=== PATIENT | female | born 1970 | race Hispanic/Latino ===

== ENCOUNTER 2021-05-02 05:51 | Emergency (ER) | payer BC ==
[2021-05-02] MEDS ORDERED: MORPHINE 4 MG/1 ML INJ IV ONE (06:26)
[2021-05-02] MEDS ORDERED: ONDANSETRON 4 MG/2 ML INJ IV ONE ×2 (06:26→06:58)
--- NOTE | 2021-05-02 06:30 | Emergency Department Report ---
ED General Adult HPI - General Chief complaint: Extremity Injury, Upper Stated complaint: SHOULDER OUT OF SOCKET Time Seen by Provider: 05/02/21 06:23 Source: patient, EMS Mode of arrival: Wheelchair Limitations: No Limitations - History of Present Illness Initial comments: The patient presents to the emergency department the chief complaint of right sh oulder pain that started this morning. Patient states she rolled over in her bed began to have excruciating pain of the right shoulder. Patient states she dislocated that shoulder on the 27 April and has dislocated the shoulder total of 4 times. Patient denies any chest pain, shortness breath, or headache. Patient also denies abdominal pain. Patient denies any recent injury -: Sudden Location: upper extremity Radiation: non-radiation Severity scale (0 -10): 9 Quality: sharp Consistency: constant Improves with: rest Worsens with: movement Associated Symptoms: denies other symptoms Treatments Prior to Arrival: none - Related Data Previous Rx's Medication Instructions Recorded Last Taken Type HYDROcodone/APAP 5-325 [Jeffers 1 each PO Q6HR PRN #12 tablet 05/02/21 Unknown Rx 5/325] Ondansetron [Zofran Odt] 4 mg PO Q4HR PRN #20 tab.rapdis 05/02/21 Unknown Rx Allergies Allergy/AdvReac Type Severity Reaction Status Date / Time acetaminophen [From Vicodin] Allergy Itching Verified 05/02/21 06:27 hydrocodone [From Vicodin] Allergy Itching Verified 05/02/21 06:27 ED Review of Systems ROS: Stated complaint: SHOULDER OUT OF SOCKET Other details as noted in HPI Comment: All other systems reviewed and negative Constitutional: denies: chills, fever Eyes: denies: eye pain, eye discharge, vision change ENT: denies: ear pain, throat pain Respiratory: denies: cough, shortness of breath, wheezing Cardiovascular: denies: chest pain, palpitations Endocrine: no symptoms reported Gastrointestinal: denies: abdominal pain, nausea, diarrhea Genitourinary: denies: urgency, dysuria, discharge Musculoskeletal: denies: back pain, joint swelling, arthralgia Skin: denies: rash, lesions Neurological: denies: headache, weakness, paresthesias Psychiatric: denies: anxiety, depression Hematological/Lymphatic: denies: easy bleeding, easy bruising ED Past Medical Hx - Past Medical History Previous Medical History?: No - Surgical History Past Surgical History?: Yes Additional Surgical History: Hip replacement left, 3 pins in right hip, thyroidectomy left - Social History Smoking Status: Never Smoker Substance Use Type: None - Medications Home Medications: Home Medications Medication Instructions Recorded Confirmed Last Taken Type HYDROcodone/APAP 5-325 [Jeffers 1 each PO Q6HR PRN #12 tablet 05/02/21 Unknown Rx 5/325] Ondansetron [Zofran Odt] 4 mg PO Q4HR PRN #20 tab.rapdis 05/02/21 Unknown Rx ED Physical Exam - General Limitations: No Limitations General appearance: alert, in no apparent distress - Head Head exam: Present: atraumatic, normocephalic - Eye Eye exam: Present: normal appearance - ENT ENT exam: Present: mucous membranes moist - Neck Neck exam: Present: normal inspection - Respiratory Respiratory exam: Present: normal lung sounds bilaterally. Absent: respiratory distress - Cardiovascular Cardiovascular Exam: Present: regular rate, normal rhythm. Absent: systolic murmur, diastolic murmur, rubs, gallop - GI/Abdominal GI/Abdominal exam: Present: soft, normal bowel sounds - Extremities Exam Extremities exam: Present: other (Patient has tenderness to palpation over the acromioclavicular landmarks. Mild deformity in the anterior aspect of the right shoulder) - Back Exam Back exam: Present: normal inspection - Neurological Exam Neurological exam: Present: alert, oriented X3 - Psychiatric Psychiatric exam: Present: normal affect, normal mood - Skin Skin exam: Present: warm, dry, intact, normal color. Absent: rash ED Course Vital Signs 05/02/21 05/02/21 05/02/21 06:05 06:31 06:36 Temperature 98.2 F Temperature [ Pre-Procedure] Pulse Rate 61 Pulse Rate [ Intra-Procedure ] Pulse Rate [ Post-Procedure] Pulse Rate [Pre -Procedure] Respiratory 18 18 Rate Respiratory Rate [Intra- Procedure] Respiratory Rate [Post- Procedure] Respiratory Rate [Pre- Procedure] Blood Pressure 140/84 Blood Pressure [Intra- Procedure] Blood Pressure 142/90 [Left] Blood Pressure [Post-Procedure ] Blood Pressure [Pre-Procedure] O2 Sat by Pulse 99 98 Oximetry O2 Sat by Pulse Oximetry [ Intra-Procedure ] O2 Sat by Pulse Oximetry [Post -Procedure] O2 Sat by Pulse Oximetry [Pre- Procedure] 05/02/21 05/02/21 05/02/21 06:45 07:15 07:45 Temperature Temperature [ Pre-Procedure] Pulse Rate 70 Pulse Rate [ Intra-Procedure ] Pulse Rate [ Post-Procedure] Pulse Rate [Pre -Procedure] Respiratory 14 Rate Respiratory Rate [Intra- Procedure] Respiratory Rate [Post- Procedure] Respiratory Rate [Pre- Procedure] Blood Pressure 140/84 140/84 131/72 Blood Pressure [Intra- Procedure] Blood Pressure [Left] Blood Pressure [Post-Procedure ] Blood Pressure [Pre-Procedure] O2 Sat by Pulse 98 97 99 Oximetry O2 Sat by Pulse Oximetry [ Intra-Procedure ] O2 Sat by Pulse Oximetry [Post -Procedure] O2 Sat by Pulse Oximetry [Pre- Procedure] 05/02/21 05/02/21 05/02/21 08:12 08:15 08:18 Temperature Temperature [ 97.9 F Pre-Procedure] Pulse Rate 68 Pulse Rate [ 68 Intra-Procedure ] Pulse Rate [ Post-Procedure] Pulse Rate [Pre 65 -Procedure] Respiratory 10 L Rate Respiratory 16 Rate [Intra- Procedure] Respiratory Rate [Post- Procedure] Respiratory 15 Rate [Pre- Procedure] Blood Pressure 154/76 Blood Pressure 134/88 [Intra- Procedure] Blood Pressure [Left] Blood Pressure [Post-Procedure ] Blood Pressure 162/75 [Pre-Procedure] O2 Sat by Pulse 99 Oximetry O2 Sat by Pulse 97 Oximetry [ Intra-Procedure ] O2 Sat by Pulse Oximetry [Post -Procedure] O2 Sat by Pulse 96 Oximetry [Pre- Procedure] 05/02/21 05/02/21 05/02/21 08:25 08:30 08:45 Temperature Temperature [ Pre-Procedure] Pulse Rate 69 70 Pulse Rate [ Intra-Procedure ] Pulse Rate [ 72 Post-Procedure] Pulse Rate [Pre -Procedure] Respiratory 15 16 Rate Respiratory Rate [Intra- Procedure] Respiratory 13 Rate [Post- Procedure] Respiratory Rate [Pre- Procedure] Blood Pressure 134/88 137/77 Blood Pressure [Intra- Procedure] Blood Pressure [Left] Blood Pressure 133/74 [Post-Procedure ] Blood Pressure [Pre-Procedure] O2 Sat by Pulse 98 99 Oximetry O2 Sat by Pulse Oximetry [ Intra-Procedure ] O2 Sat by Pulse 100 Oximetry [Post -Procedure] O2 Sat by Pulse Oximetry [Pre- Procedure] 05/02/21 05/02/21 05/02/21 08:50 09:00 09:15 Temperature Temperature [ Pre-Procedure] Pulse Rate 65 70 Pulse Rate [ Intra-Procedure ] Pulse Rate [ Post-Procedure] Pulse Rate [Pre -Procedure] Respiratory 21 14 Rate Respiratory Rate [Intra- Procedure] Respiratory Rate [Post- Procedure] Respiratory Rate [Pre- Procedure] Blood Pressure 144/75 136/87 Blood Pressure [Intra- Procedure] Blood Pressure [Left] Blood Pressure [Post-Procedure ] Blood Pressure [Pre-Procedure] O2 Sat by Pulse 98 100 100 Oximetry O2 Sat by Pulse Oximetry [ Intra-Procedure ] O2 Sat by Pulse Oximetry [Post -Procedure] O2 Sat by Pulse Oximetry [Pre- Procedure] 05/02/21 05/02/21 05/02/21 09:31 09:45 10:00 Temperature Temperature [ Pre-Procedure] Pulse Rate 65 68 64 Pulse Rate [ Intra-Procedure ] Pulse Rate [ Post-Procedure] Pulse Rate [Pre -Procedure] Respiratory 18 12 14 Rate Respiratory Rate [Intra- Procedure] Respiratory Rate [Post- Procedure] Respiratory Rate [Pre- Procedure] Blood Pressure 136/81 138/86 126/76 Blood Pressure [Intra- Procedure] Blood Pressure [Left] Blood Pressure [Post-Procedure ] Blood Pressure [Pre-Procedure] O2 Sat by Pulse 99 100 97 Oximetry O2 Sat by Pulse Oximetry [ Intra-Procedure ] O2 Sat by Pulse Oximetry [Post -Procedure] O2 Sat by Pulse Oximetry [Pre- Procedure] 05/02/21 05/02/21 05/02/21 10:15 10:30 10:45 Temperature Temperature [ Pre-Procedure] Pulse Rate 75 73 60 Pulse Rate [ Intra-Procedure ] Pulse Rate [ Post-Procedure] Pulse Rate [Pre -Procedure] Respiratory 16 18 15 Rate Respiratory Rate [Intra- Procedure] Respiratory Rate [Post- Procedure] Respiratory Rate [Pre- Procedure] Blood Pressure 127/88 127/76 120/81 Blood Pressure [Intra- Procedure] Blood Pressure [Left] Blood Pressure [Post-Procedure ] Blood Pressure [Pre-Procedure] O2 Sat by Pulse 96 98 95 Oximetry O2 Sat by Pulse Oximetry [ Intra-Procedure ] O2 Sat by Pulse Oximetry [Post -Procedure] O2 Sat by Pulse Oximetry [Pre- Procedure] 05/02/21 05/02/21 05/02/21 10:49 10:50 10:58 Temperature Temperature [ Pre-Procedure] Pulse Rate Pulse Rate [ 47 L Intra-Procedure ] Pulse Rate [ 63 Post-Procedure] Pulse Rate [Pre 65 65 -Procedure] Respiratory Rate Respiratory 13 Rate [Intra- Procedure] Respiratory 12 Rate [Post- Procedure] Respiratory 13 13 Rate [Pre- Procedure] Blood Pressure Blood Pressure 113/73 [Intra- Procedure] Blood Pressure [Left] Blood Pressure 128/76 [Post-Procedure ] Blood Pressure 125/77 125/77 [Pre-Procedure] O2 Sat by Pulse Oximetry O2 Sat by Pulse 100 Oximetry [ Intra-Procedure ] O2 Sat by Pulse 100 Oximetry [Post -Procedure] O2 Sat by Pulse 100 100 Oximetry [Pre- Procedure] 05/02/21 05/02/21 05/02/21 11:00 11:15 11:31 Temperature Temperature [ Pre-Procedure] Pulse Rate 70 67 65 Pulse Rate [ Intra-Procedure ] Pulse Rate [ 72 Post-Procedure] Pulse Rate [Pre -Procedure] Respiratory 14 11 L 13 Rate Respiratory Rate [Intra- Procedure] Respiratory 13 Rate [Post- Procedure] Respiratory Rate [Pre- Procedure] Blood Pressure 116/75 113/75 136/76 Blood Pressure [Intra- Procedure] Blood Pressure [Left] Blood Pressure 114/81 [Post-Procedure ] Blood Pressure [Pre-Procedure] O2 Sat by Pulse 97 97 98 Oximetry O2 Sat by Pulse Oximetry [ Intra-Procedure ] O2 Sat by Pulse 100 Oximetry [Post -Procedure] O2 Sat by Pulse Oximetry [Pre- Procedure] 05/02/21 05/02/21 05/02/21 11:33 11:45 12:01 Temperature Temperature [ Pre-Procedure] Pulse Rate 64 65 Pulse Rate [ Intra-Procedure ] Pulse Rate [ 64 64 Post-Procedure] Pulse Rate [Pre -Procedure] Respiratory 12 14 Rate Respiratory Rate [Intra- Procedure] Respiratory 13 12 Rate [Post- Procedure] Respiratory Rate [Pre- Procedure] Blood Pressure 125/71 113/73 Blood Pressure [Intra- Procedure] Blood Pressure [Left] Blood Pressure 113/75 125/71 [Post-Procedure ] Blood Pressure [Pre-Procedure] O2 Sat by Pulse 97 98 Oximetry O2 Sat by Pulse Oximetry [ Intra-Procedure ] O2 Sat by Pulse 100 97 Oximetry [Post -Procedure] O2 Sat by Pulse Oximetry [Pre- Procedure] 05/02/21 12:15 Temperature Temperature [ Pre-Procedure] Pulse Rate 62 Pulse Rate [ Intra-Procedure ] Pulse Rate [ Post-Procedure] Pulse Rate [Pre -Procedure] Respiratory 11 L Rate Respiratory Rate [Intra- Procedure] Respiratory Rate [Post- Procedure] Respiratory Rate [Pre- Procedure] Blood Pressure 105/62 Blood Pressure [Intra- Procedure] Blood Pressure [Left] Blood Pressure [Post-Procedure ] Blood Pressure [Pre-Procedure] O2 Sat by Pulse 97 Oximetry O2 Sat by Pulse Oximetry [ Intra-Procedure ] O2 Sat by Pulse Oximetry [Post -Procedure] O2 Sat by Pulse Oximetry [Pre- Procedure] - Orthopedic Joint Reduction Joint #1 Consent Obtained: verbal consent, written consent Time Out Performed: Yes Side: right Joint Reduction Location: shoulder Local Anesthetic Used: Lidocaine 1%, Bupivicaine 0.5% Amount of Anesthetic Used (mls): 14 Shoulder Technique Used (if applicable): traction/counter-traction, external rotation, Echevarria Post-Reduction Neuro Exam: intact Post-Reduction Vascular Exam: intact Post Reduction X-Ray Obtained: Yes Post Reduction X-Ray Results: not reduced Patient Tolerated Procedure: well Joint #2 Consent Obtained: verbal consent, written consent Joint Reduction Location: shoulder Analgesia: moderate sedation Shoulder Technique Used (if applicable): traction/counter-traction Technique Used: traction/counter-traction Post-Reduction Vascular Exam: intact Post Reduction X-Ray Obtained: Yes Post Reduction X-Ray Results: reduced Splint Applied: Yes Patient Tolerated Procedure: well ED Medical Decision Making - Radiology Data Radiology results: report reviewed - Medical Decision Making Initial reduction was tried with anxiolytic and IV Dilaudid as well as intrajoint injection which the patient tolerated well. Attempt at reduction was made without success. Patient was then given propofol for conscious sedation without complete reduction of the patient's anterior right shoulder dislocation due to the inability of the patient's muscles to be completely relaxed. Patient was given etomidate with good success and reduction of dislocation. Critical care attestation.: If time is entered above; I have spent that time in minutes in the direct care of this critically ill patient, excluding procedure time. ED Disposition Clinical Impression: Shoulder dislocation, recurrent Disposition: DC-01 TO HOME OR SELFCARE Is pt being admited?: No Does the pt Need Aspirin: No Condition: Stable Instructions: Shoulder Dislocation, Moderate Conscious Sedation, Adult, Moderate Conscious Sedation, Adult, Care After, How to Use a Shoulder Immobilizer Additional Instructions: return if worse Prescriptions: HYDROcodone/APAP 5-325 [Jeffers 5/325] 1 each PO Q6HR PRN #12 tablet PRN Reason: Pain Ondansetron [Zofran Odt] 4 mg PO Q4HR PRN #20 tab.rapdis PRN Reason: Nausea Referrals: PRIMARY CARE, [Primary Care Provider] - 3-5 Days YOLANDA BOYD MD [Staff Physician] - 3-5 Days Time of Disposition: 13:13
[2021-05-02] MEDS ORDERED: SODIUM CHLORIDE 0.9% 1000 ML 1,000 ML IV ONE ×2 (06:59→09:56)
[2021-05-02] MEDS ORDERED: HYDROmorphone 1 MG/1 ML INJ IV ONE ×2 (06:59→09:29)
[2021-05-02] MEDS ORDERED: LORazepam 2 MG/ML VIAL IV ONE (06:59)
[2021-05-02] MEDS ORDERED: LIDOCAINE (1%) 10 MG/1 ML VIAL 20 ML MDV INFILTRATI ONE (06:59)
--- NOTE | 2021-05-02 07:08 | XRay Report ---
RIGHT SHOULDER 3 VIEW(S) INDICATION / CLINICAL INFORMATION: pain/dislocation COMPARISON: None available. FINDINGS: BONES / JOINT(S): There is anterior dislocation of the shoulder joint there is irregularity along the inferior aspect of the glenoid suggesting a Bankart lesion. No significant arthritis. SOFT TISSUES: No significant abnormality. ADDITIONAL FINDINGS: None. Signer Name: Valerio Gupta MD Signed: 05/02/2021 7:03 AM Workstation Name: [id number]
[2021-05-02] MEDS ORDERED: propofoL 200 MG/20 ML VIAL IV ONE ×2 (07:55→09:56)
[2021-05-02] MEDS ORDERED: BUPIVACAINE/PF (0.5%) 5 MG/1 ML 10 ML VIAL INFILTRATI NR (08:00)
--- NOTE | 2021-05-02 10:01 | XRay Report ---
XR shoulder 1V RT INDICATION: POST REDUCTION. COMPARISON: Exam done earlier today FINDINGS: Previously demonstrated anterior right shoulder dislocation has been reduced with appropriate appeari ng alignment. Signer Name: Aldo Langford MD Signed: 05/02/2021 9:56 AM Workstation Name: [id number]
[2021-05-02] MEDS: ETOMIDATE 20 MG/10 ML INJ IV ONE ×2 (10:20→10:47)
--- NOTE | 2021-05-02 11:10 | XRay Report ---
Right shoulder single view INDICATION: Postreduction FINDINGS: Interval reduction in right shoulder dislocation. AC joint appears normal. No displaced fra cture is definitely seen Signer Name: Shahbaz Bhagat MD Signed: 05/02/2021 11:06 AM Workstation Name: [id number]
[2021-05-02 13:55] VITALS: BP 113/68
== END 2021-05-02 14:00 | disposition home or self-care (01) ==
LOC: ED 05:51
DX: M24.411 Recurrent dislocation, right shoulder (principal); Z98.890 Other specified postprocedural states; Z79.899 Other long term (current) drug therapy; Z88.8 Allergy status to other drugs, medicaments and biological substances
CPT/HCPCS: 23650; 73020; 73030; 96361; 96374; 96375; 96376; 99284; J1170; J2060; J2270; J2405; J2704; J7030